=== PATIENT | female | born 1945 | race Caucasian/White ===

== ENCOUNTER 2017-02-26 12:55 | Emergency (ER) | payer MEDICARE, OTHER ==
[~2017-02-26] VITALS: Ht 177.8 cm; Wt 70.3 kg
[~2017-02-26 12:55] MED LIST: ALBU2.5V5 NEB; DONE10TA7 PO; HYDR12.53 PO; LEVO500T38 PO; MEMA10TA20 PO; PARO40TA3 PO; PRED-220 PO; QUET50TA PO; SIMV40TA3 PO
[2017-02-26 13:06] VITALS: BP 117/75
[2017-02-26] MEDS ORDERED: IBUPROFEN 400 MG TABLET. PO ONE (13:15)
--- NOTE | 2017-02-26 13:19 | PHYS DOC ---
Past Medical History Past Medical History: COPD, High Cholesterol, Hypertension, UTI, Other Additional Past Medical Histor: ALZHEIMERS, Past Surgical History: No Surgical History Alcohol Use: None Drug Use: None Adult General Chief Complaint Chief Complaint: BREAST PROBLEM HPI HPI Patient is a 71 year old female presents emergency department stating that 2 days ago she found a lump under her left breast. She states that she does not do monthly breast exams. She does states that she does do her normal may milligrams although it has not been on for quite some time. Patient denies any drainage or discharge coming from the area. She states that is very hard and tender. She denies fever, chills or any nausea vomiting. Patient does state they have breast cancer that runs in the family although was from an aunt. Review of Systems Review of Systems Constitutional: Denies fever or chills [] Eyes: Denies change in visual acuity, redness, or eye pain [] HENT: Denies nasal congestion or sore throat [] Respiratory: Denies cough or shortness of breath [] Cardiovascular: No additional information not addressed in HPI [] GI: Denies abdominal pain, nausea, vomiting, bloody stools or diarrhea [] : Denies dysuria or hematuria [] Musculoskeletal: Denies back pain or joint pain [] Integument: Denies rash or skin lesions. C/o lump under the left breast Neurologic: Denies headache, focal weakness or sensory changes [] Endocrine: Denies polyuria or polydipsia [] Current Medications Current Medications Current Medications Medications (Trade) Dose Ordered Sig/Janet Start Time Stop Time Status Last Admin Dose Admin Ibuprofen (Motrin) 400 mg 1X ONCE 02/26/17 13:15 02/26/17 13:17 DC 02/26/17 13:41 400 MG Allergies Allergies Allergies Coded Allergies Type Severity Reaction Last Updated Verified Penicillins Allergy Unknown Itching 02/26/17 Yes morphine Allergy Unknown 02/26/17 Yes Physical Exam Physical Exam Constitutional: Well developed, well nourished, no acute distress, non-toxic appearance. [] HENT: Normocephalic, atraumatic, bilateral external ears normal, oropharynx moist, no oral exudates, nose normal. [] Eyes: PERRLA, EOMI, conjunctiva normal, no discharge. [] Neck: Normal range of motion, no tenderness, supple, no stridor. [] Cardiovascular:Heart rate regular rhythm, no murmur [] Lungs & Thorax: Bilateral breath sounds clear to auscultation [] Skin: Warm, dry, no erythema, no rash. Grape-sized area lump noticed under the left breast. Area appears to be movable, hard and tender Back: No tenderness Extremities: No tenderness, no cyanosis, no clubbing, ROM intact, no edema. [] Neurologic: Alert and oriented X 3, normal motor function, normal sensory function, no focal deficits noted. [] Psychologic: Affect normal, judgement normal, mood normal. [] Current Patient Data Vital Signs Vital Signs Date Time Temp Pulse Resp B/P (MAP) Pulse Ox O2 Delivery O2 Flow Rate FiO2 02/26/17 13:06 98.3 79 18 96 Room Air 98.3 EKG EKG [] Radiology/Procedures Radiology/Procedures [][facility] [address] [place] [address] IMAGING REPORT Signed PATIENT: JASON VALDOVINOS ACCOUNT: [id number] : 1945 LOCATION: ER AGE: 71 SEX: F EXAM STATUS: REG ER ORD. PHYSICIAN: MARGARET DICKSON APRN REASON: lump under breast tenderness and hard PROCEDURE: BREAST LEFT Examination: Targeted ultrasound left breast History: History of painful lump under the left breast for one year Comparison: None available Findings: There is a 1 cm hypodense mass with the central echogenicity , identified at 5:30 position 5 cm from the nipple in the left breast with vascular flow within. Impression: 1 cm hypodense mass with central echogenicity identified at 5:30 position on the left breast 5 cm from the nipple. Differential includes mass or lymph node. BI-RADS Category 0. Needs additional imaging evaluation. Recommend follow-up diagnostic mammogram. DICTATED and SIGNED BY: BETTE CASTANEDA MD DATE: 02/26/17 0424 CC: MARGARET DICKSON APRN; NON,STAFF; LUCY FERGUSON MD ~ Course & Med Decision Making Course & Med Decision Making Pertinent Labs and Imaging studies reviewed. (See chart for details) patient with mass noted at 5:30 area per radiology. Mammogram was recommended. Mammogram was complete with mass noted and biopsy recommended. Patient was provided information. Patient will be discharged home in stable condition. Signs and symptoms to return to the emergency department have been provided. Family agrees with discharge instructions, treatment regimen and followup recommendations. [] Dragon Disclaimer Dragon Disclaimer This electronic medical record was generated, in whole or in part, using a voice recognition dictation system. Departure Departure Impression: Primary Impression: Left breast mass Disposition: HOME, SELF-CARE Condition: STABLE Referrals: LUCY FERGUSON MD (PCP) Patient Instructions: Breast Tenderness Additional Instructions: Activity as tolerated Tylenol or Ibuprofen for pain Followup with primary care provider for referral for a breast biopsy. MARGARET DICKSON RN ICU February 26, 2017 13:19
--- NOTE | 2017-02-26 13:43 | RAD ---
Examination: Targeted ultrasound left breast History: History of painful lump under the left breast for one year Comparison: None available Findings: There is a 1 cm hypodense mass with the central echogenicity , identified at 5:30 position 5 cm from the nipple in the left breast with vascular flow within. Impression: 1 cm hypodense mass with central echogenicity identified at 5:30 position on the left breast 5 cm from the nipple. Differential includes mass or lymph node. BI-RADS Category 0. Needs additional imaging evaluation. Recommend follow-up diagnostic mammogram.
--- NOTE | 2017-02-27 16:56 | RAD ---
DATE: 02/26/2017 EXAM: DIGITAL DIAGNOSTIC LT HISTORY: Left breast mass COMPARISON: Ultrasound same day exam This study was interpreted with the benefit of Computerized Aided Detection (CAD ). FINDINGS: Breast Density: SCATTERED The breast parenchyma shows scattered fibroglandular densities. Breast parenchyma level B. There is a irregular appearing mass identified in the 5:00 position of the left breast with irregular margins. IMPRESSION: Irregular appearing left breast mass at 5:00 position. BI-RADS CATEGORY: 4 SUSPICIOUS ABNORMALITY-BIOPSY SHOULD BE CONSIDERED RECOMMENDED FOLLOW-UP: Recommend ultrasound-guided biopsy. Ordering ER physician and patient was informed at time of dictation. PQRS compliance statement: Patient information was entered into a reminder system with a target due date immediate recall for the next mammogram. Mammography is a sensitive method for finding small breast cancers, but it does not detect them all and is not a substitute for careful clinical examination. A negative mammogram does not negate a clinically suspicious finding and should not result in delay in biopsying a clinically suspicious abnormality. "Our facility is accredited by the [employer] Mammography Program." KAMROND
== END 2017-02-26 16:15 | disposition home or self-care (01) ==
LOC: ER 12:55
DX: N63 Unspecified lump in breast (principal); J44.9 Chronic obstructive pulmonary disease, unspecified; E78.00 Pure hypercholesterolemia, unspecified; I10 Essential (primary) hypertension; G30.9 Alzheimer's disease, unspecified; F02.80 Dementia in other diseases classified elsewhere, unspecified severity, without behavioral disturbance, psychotic disturbance, mood disturbance, and anxiety; Z87.440 Personal history of urinary (tract) infections; Z88.5 Allergy status to narcotic agent; Z88.0 Allergy status to penicillin
CPT/HCPCS: 76641; 99284; G0206; 77065

== ENCOUNTER → 2017-03-19 | Day surgery (SDC) | payer OTHER ==
[~2017-03-19] MED LIST changes: +ALBUTEROL SULFATE 2.5 MG/3 ML NEBU. IH ONE; +ALBUTEROL SULFATE 2.5 MG/3 ML NEBU. ONE; +DOCU100C28 PO; +FLUT1DIS5 IH; +GLYCOPYRROLATE 1 MG/5 ML VIAL. ONE; +IV RINGERS,LACTATED 1000ML 1,000 ML IV SCH; -LEVO500T38 PO; +LEVO500T59 PO; +LIDOCAINE 1% 1 ML SYRINGE. ID PRN; +LISI1TAB3 PO; +MEPERIDINE PF 25 MG/ML VIAL. ONE; +MIDAZOLAM HCL/PF 2 MG/2 ML VIAL. IV PRN; +PROPOFOL 40 ML IV ONE; +fentaNYL PF VIAL 100 MCG/2 ML VIAL IV PRN
[2017-03-19 14:43] VITALS: BP 118/60
--- NOTE | 2017-03-19 21:20 | RESP ---
DATE OF SERVICE: 03/19/2017 ATTENDING PHYSICIAN: Nancy Weinstein M.D. PROCEDURE: Bronchoscopy, bronchoalveolar lavage. INDICATIONS: The patient presented with abnormal CT of the chest revealing left upper lobe mass, undergoing a diagnostic bronchoscopy. Risks, benefits, and alternatives reviewed with the patient and she consented. DESCRIPTION OF PROCEDURE: Timeout was performed prior to sedation. Vital signs and O2 saturation were maintained within normal limits throughout the procedure. The bronchoscope was passed through the right naris. The vocal cords were anesthetized with lidocaine. The bronchoscope was passed through the vocal cords into the proximal trachea, which was normal. The distal trachea was likewise normal. The right and left segments and subsegments were well visualized. There was no endobronchial lesion. The scope was wedged into the left upper lobe subsegment and bronchoalveolar lavage was performed. The ____ was clear. The patient tolerated procedure well with no immediate complications. FINDINGS: 1. Normal vocal cords. 2. No endobronchial lesion. PLAN: We will await the BAL results. The patient is to follow up in the office. GALILEO SMITH MD DR: CAM/hugh JOB#: [id number] / [id number] mis aLra Dr.
--- NOTE | 2017-03-20 10:37 | PATHOLOGY ---
CYTOPATHOLOGY REPORT CLINICAL HISTORY: Lung mass. SPECIMEN(S) RECEIVED: A.Bronchoalveolar lavage, JONAS FINAL DIAGNOSIS: Bronchoalveolar lavage, left upper lobe: - Few mildly atypical cells present amongst many reactive bronchial epithelial cells and alveolar macrophages not diagnostic. COMMENT: Suggest clinical correlation. PATHOLOGIST: Asa Medeiros M.D. REPORT ELECTRONICALLY SIGNED BY: Asa Medeiros M.D. DATE/TIME: 03/20/2017 10:37 GROSS PATHOLOGY: A. Bronchoalveolar lavage, JONAS: The specimen is submitted unfixed, labeled "Sonia Valdovinos". Received by the Cytology Department is 10 mL of cloudy red fluid. One ThinPrep slide was prepared. (clt 03.19.2017) SIGNALER(S): ASA Rivers(ASCP) INITIAL CPT CODE(S): A; 77860 Professional services performed [place] [facility] [place] [address] Technical services performed by [facility] at [address] [place] [address], [address], [place] [address]. PATIENT: SONIA VALDOVINOS /AGE: 10 1945 (Age: 71) SEX: F PATIENT #: [id number] ALT CASE #: SPECIMEN COLLECTION DATE: 03/19/2017 SPECIMEN RECEIVED DATE: 03/19/[address] [facility] [address] [place] [address], [address] [place] [address] PHONE: [phone] DIRECTOR: Juarez Lozano M.D. * * * END OF REPORT * * *
== END | disposition home or self-care (01) ==
LOC: SURG 12:11
PROVIDERS: ATTEND Internal Medicine Pulmonary Disease
DX: R91.8 Other nonspecific abnormal finding of lung field (principal); E78.00 Pure hypercholesterolemia, unspecified; I10 Essential (primary) hypertension; J44.9 Chronic obstructive pulmonary disease, unspecified; F32.9 Major depressive disorder, single episode, unspecified; Z90.710 Acquired absence of both cervix and uterus; M19.90 Unspecified osteoarthritis, unspecified site; Z88.6 Allergy status to analgesic agent; Z88.0 Allergy status to penicillin
CPT/HCPCS: 31624; 87070; 87102; 87116; 87205; 88112; 94640; J2704; 31622; J2175; J3490

== ENCOUNTER → 2017-03-27 | Outpatient (CLI) | payer OTHER ==
[2017-03-27] VITALS (13 sets, daily range): BP systolic 104–127; BP diastolic 45–77
[~2017-03-27] VITALS: Ht 177.8 cm; Wt 62.6 kg
[~2017-03-27] MED LIST changes: -ALBUTEROL SULFATE 2.5 MG/3 ML NEBU. IH ONE; -ALBUTEROL SULFATE 2.5 MG/3 ML NEBU. ONE; -GLYCOPYRROLATE 1 MG/5 ML VIAL. ONE; -IV RINGERS,LACTATED 1000ML 1,000 ML IV SCH; +KETOROLAC TROMETHAMINE 30 MG/ML INJ. IV PRN; +LIDOCAINE 1% / SOD BICARB 8.4% 20 ML VIAL. IJ ONE; -LIDOCAINE 1% 1 ML SYRINGE. ID PRN; +LIDOCAINE 2% 20 ML VIAL. IJ ONE; -MEPERIDINE PF 25 MG/ML VIAL. ONE; +MIDAZOLAM HCL/PF 2 MG/2 ML VIAL. IV ONE; -MIDAZOLAM HCL/PF 2 MG/2 ML VIAL. IV PRN; +MIDAZOLAM HCL/PF 2 MG/2 ML VIAL. ONE; -PROPOFOL 40 ML IV ONE; +fentaNYL PF VIAL 100 MCG/2 ML VIAL IV ONE; -fentaNYL PF VIAL 100 MCG/2 ML VIAL IV PRN; +fentaNYL PF VIAL 100 MCG/2 ML VIAL ONE
[2017-03-27 07:24] LABS: BASO # 0.1 x10^3/uL (0.0-0.2); BASO % 1 % (0-3); EOS % 7 % (0-3); HEMOGLOBIN 11.7 g/dL (12.0-15.5); LYMPH # 3.3 x10^3/uL (1.0-4.8); LYMPH % 26 % (24-48); MEAN CORPUSCULAR HEMOGLOBIN 27 pg (25-35); MEAN CORPUSCULAR HGB CONC 32 g/dL (31-37); MEAN CORPUSCULAR VOLUME 83 fL (79-100); MONO % 6 % (0-9); NEUT % 60 % (31-73); PLATELET COUNT 516 x10^3/uL (140-400); RED BLOOD COUNT 4.34 x10^6/uL (3.50-5.40); RED CELL DISTRIBUTION WIDTH 15.8 % (11.5-14.5); WHITE BLOOD COUNT 12.8 x10^3/uL (4.0-11.0)
[2017-03-27 07:36] LABS: PROTHROMBIN TIME PATIENT 12.9 SEC (11.7-14.0)
--- NOTE | 2017-03-27 09:14 | PDOC ---
MODERATE SEDATION ASSESSMENT RISKS/ALTERNATIVES Risks/Alternatives Risks and alternatives of this type of sedation and procedure discussed with: RISK/ALTERNATIVES: Patient H & P ON CHART H & P H & P on chart and reviewed for co-morbid conditions and appropriate labs. H&P ON CHART: Yes STATUS PREG STATUS ASSESSED: N/A MEDS/ALLERGIES REVIEWED Meds/Allergies Reviewed Medications and Allergies including time and route of recently administered narcotics and sedatives. MEDS/ALLERGIES REVIEWED: Yes ASA RATING ASA RATING: III AIRWAY ASSESSMENT Airway Assessment Airway patency, oral function limitations, presence of caps, crowns, dentures, partials, and ability to extend neck assessed. AIRWAY ASSESSMENT: Yes MALLAMPATI SCORE MALLAMPATI SCORE: II PRE-SEDATION ASSESSMENT PRE-SEDATION ASSESSMENT: Yes NHUNG MURDOCK MD Mar 27, 2017 09:14
--- NOTE | 2017-03-27 09:22 | PDOC1 ---
History and Physical Date of Procedure Date of Admission 03/27/[address] guided left lung mass bx Indication Indication 71 YO female smoker with COPD and with 2.2 cm, noncalcific, spiculated left upper lobe lung mass. Recent Dx of breast cancer. CT guided bx requested for tissue dx. Past Medical History Past Medical History See Nursing Pre Procedure PMH Past Surgical History Past Surgical History See Nursing Pre Procedure PSH Current Medications Current Medications Current Medications Lidocaine/Sodium Bicarbonate (Buffered Lidocaine 1%) 20 ml STK-MED ONCE IJ ; Start 03/27/17 at 07:55; Stop 03/27/17 at 07:56; Status DC Fentanyl Citrate (Fentanyl 2ml Vial) 100 mcg STK-MED ONCE .ROUTE ; Start at 08:12; Stop 03/27/17 at 08:13; Status DC Midazolam HCl (Versed) 2 mg STK-MED ONCE .ROUTE ; Start 03/27/17 at 08:12; Stop 03/27/17 at 08:13; Status DC Midazolam HCl (Versed) 2 mg 1X ONCE IV Last administered on 03/27/17 08:45; Start 03/27/17 at 08:45; Stop 03/27/17 at 08:46; Status DC Fentanyl Citrate (Fentanyl 2ml Vial) 100 mcg 1X ONCE IV Last administered on 08:45; Start 03/27/17 at 08:45; Stop 03/27/17 at 08:46; Status DC Lidocaine HCl 20 ml 1X ONCE IJ Last administered on 03/27/17 08:45; Start at 08:45; Stop 03/27/17 at 08:46; Status DC Active Scripts Active Advair 500-50 Diskus (Fluticasone/Salmeterol) 1 Each Disk.w.dev 1 Puff IH BID Albuterol Sulfate Neb Soln (Albuterol Sulfate) 2.5 Mg/3 Ml Vial.neb 2.5 Mg NEB PRN Q2HR PRN 30 Days Reported Docusate Sodium 100 Mg Capsule 1 Cap PO QHS Advair 500-50 Diskus (Fluticasone/Salmeterol) 1 Each Disk.w.dev 1 Puff IH BID Quetiapine Fumarate 50 Mg Tablet 150 Mg PO QHS Paroxetine Hcl 40 Mg Tablet 40 Mg PO DAILY Memantine HCl 10 Mg Tablet 10 Mg PO BID Donepezil Hcl 10 Mg Tablet 10 Mg PO QHS Simvastatin 40 Mg Tablet 40 Mg PO QHS Allergies Allergies: Coded Allergies: Penicillins (Verified Allergy, Intermediate, Itching, 03/19/17) morphine (Verified Adverse Reaction, Intermediate, "GETS CRAZY", 03/19/17) Physical Exam Vital Signs Vital Signs Date Time Temp Pulse Resp B/P (MAP) Pulse Ox O2 Delivery O2 Flow Rate FiO2 03/27/17 08:45 16 96 Nasal Cannula 2.0 03/27/17 08:44 79 03/27/17 07:30 98.2 104/45 (64) 98.2 Lungs: Other (Diminished breath sounds with scattered wheezes) Heart: Regular rate Psych/Mental Status: Mental status NL Diagnostic Data/Imaging Images PMC CTA chest from 03/14/17 reviewed Assessment Assessment Spiculated, 2.2 cm, noncalcific left upper lobe lung mass. Recently diagnosed breast cancer. Lung mass thought more likely to represent 2nd primary malignancy rather than met breast cancer. Problems: Plan Plan CT guided left lung bx, with possible chest tube insertion for post bx Ptx , in this medical terminologist smoker with significant COPD. NHUNG MURDOCK MD Mar 27, 2017 09:22
--- NOTE | 2017-03-27 09:33 | PDOC ---
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 Post-Procedure Diagnosis Post-Procedure Diagnosis Same Procedure Performed Procedure Performed CT guided left lung mass bx Type of Anesthesia Type of Anesthesia Local + Mod sedation Estimated Blood Loss EBL: Trace Specimens Specimans 2 18G core bx to path in formalin Condition of Patient Condition of Patient Hemodynamically stable. Completion CT images revealed tiny asymptomatic immediate post bx Ptx, stable over 15 minutes. Disposition Disposition From IR/CT to CVOBS. 90 minute post bx insp/exp CXR requested to confirm or exclude Ptx progression. F/u with Dr Lara. Full report to follow. NHUNG MURDOCK MD Mar 27, 2017 09:33
--- NOTE | 2017-03-27 10:49 | RAD ---
Portable chest, inspiration and expiration views, 03/27/2017: History: Post lung biopsy evaluation Comparison is made to a study from 03/14/2017. There has been interval percutaneous biopsy of a left apical mass. The mass itself is not well defined on these views due to overlying rib and clavicular shadows. There is a small left apical pneumothorax estimated at 5-10% in volume. There is a calcified granuloma in the left lung. There are scattered parenchymal scars. No pleural fluid is seen. The heart size is normal. IMPRESSION: Small left apical pneumothorax status post left lung biopsy.
--- NOTE | 2017-03-28 06:43 | RAD ---
CT-guided left lung biopsy Indication: 71-year-old female recently diagnosed with breast cancer. She is a heavy smoker, with COPD, and with a spiculated, noncalcified, 2 cm mass within left lung apex. This lung mass is thought more likely to represent a second primary cancer than metastatic breast cancer. CT-guided biopsy has been requested for tissue diagnosis. Anesthesia: 31 minutes moderate sedation was provided utilizing a total of 0.5 mg Versed and 25 mcg fentanyl, IV. The patient was appropriately monitored by a qualified independent observer throughout the time of moderate sedation. Consent: The procedure was explained in its entirety to the patient and/or the patient's designated retention representative by a member of the treatment team. This included a discussion of risks and benefits and acceptable alternatives to the procedure, as well as expected consequences of no treatment at all. Discussion of risks included, but was not limited to, those that are most frequent and those that are rare, but possibly severe or life-threatening, as well as the possibility of unforeseen complications. Given this patient's COPD, the risk of postbiopsy pneumothorax was emphasized. Procedure: Informed consent was obtained from the patient. She was placed prone on the CT scanner. Preliminary noncontrast CT images confirmed the previously described spiculated, noncalcified, 2 cm mass within left lung apex, with surrounding emphysematous changes. A left posterior skin site suitable for CT-guided biopsy was selected and marked. That area was prepped and draped in the usual sterile fashion. Moderate sedation was provided with IV Versed and fentanyl. Using aseptic technique, local anesthesia, and CT guidance, a 17-gauge guide needle was successfully advanced into posterior aspect of the spiculated lung mass. 2 18-gauge core biopsy samples were then obtained. Biopsy material was submitted in formalin to pathology. The biopsy needle was removed and a sterile dressing was applied. Completion CT images revealed a small, asymptomatic postbiopsy pneumothorax, which remained stable on [address] images. A 90 minute postbiopsy inspiration/expiration chest x-ray will be obtained during patient recovery in CV observation to confirm or exclude pneumothorax progression. Impression: Successful CT-guided left lung mass biopsy, as described. A very small postbiopsy pneumothorax was identified on completion CT images. A 90 minute postbiopsy aspiration/expiration chest x-ray will be obtained during patient recovery in CV observation, to confirm or exclude pneumothorax progression. PQRS Compliance Statement: One or more of the following individualized dose reduction techniques was utilized for this procedure: 1. Automated exposure control. 2. Adjustment of MA and/or KV according to patient size. 3. Iterative reconstruction technique.
--- NOTE | 2017-03-29 16:33 | PATHOLOGY ---
PATHOLOGY REPORT * * * * * * * * FINAL DIAGNOSIS: Lung tissue, left lung mass CT-guided biopsy: - ADENOCARCINOMA, MODERATELY TO FOCALLY POORLY DIFFERENTIATED. SEE COMMENT. COMMENT: Sections of the left lung mass CT-guided biopsy show extensive replacement of lung parenchyma by a malignant epithelial neoplasm. The neoplasm is composed of irregular glands which are associated with a reactive fibrotic and elastotic stroma. Some of the malignant glands show dirty intraluminal necrosis. The malignant cells have ample amounts of pale eosinophilic cytoplasm. The malignant cells possess enlarged, rounded to ovoid, moderately to focally markedly pleomorphic nuclei containing prominent nucleoli. There are mitotic figures present. 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 The case was also examined by Dr. Godwin Blum, who concurs with the diagnosis. (JPM:mgr/mary; d/t: 03/28/17) Special Stains Performed: Immunoperoxidase stains for CK7, CK20, CDX-2, Mammaglobin, BCA-225, TTF-1, Napsin. REPORT ELECTRONICALLY SIGNED BY: Osmar Carbajal M.D. DATE/TIME: 03/29/2017 16:32 * * * * * * * * GROSS PATHOLOGY: Received in formalin labeled "Sonia Valdovinos, left lung biopsy," are 2 distinct needle cores of gibbons soft tissue ranging from 0.8 and 1.0 cm in length, which are submitted entirely in cassette A1. (JPM; 03/27/17) INITIAL CPT CODE(S): A; 31975, 58104, 73233, 46215, 27429, 19066, 33101, 88628 Professional services performed by [email or web address] at [facility] [address] [place] [id number] Technical services performed by [facility] at [address] [place] [address], [address], [place] [address]. SPECIMEN(S) RECEIVED: A.Left lung mass CLINICAL HISTORY: Left lung mass, ? bronch ca, 2cm mass JONAS, also breast cancer diagnosed 03/15/17, smoker with COPD PATIENT: SONIA VALDOVINOS /AGE: 10 1945 (Age: 71) PATIENT #: [id number] ALT CASE #: SPECIMEN COLLECTION DATE: 03/27/2017 SPECIMEN RECEIVED DATE: 03/27/2017 [facility] - [address] [place] [address] - PHONE: [phone] * * * END OF REPORT * * *
== END | disposition home or self-care (01) ==
LOC: INTRAD 06:55
PROVIDERS: ATTEND Internal Medicine Critical Care Medicine
DX: C34.92 Malignant neoplasm of unspecified part of left bronchus or lung (principal); J44.9 Chronic obstructive pulmonary disease, unspecified; F17.200 Nicotine dependence, unspecified, uncomplicated; I10 Essential (primary) hypertension; E78.00 Pure hypercholesterolemia, unspecified; M19.90 Unspecified osteoarthritis, unspecified site; F32.9 Major depressive disorder, single episode, unspecified; Z90.710 Acquired absence of both cervix and uterus; Z72.0 Tobacco use; Z86.69 Personal history of other diseases of the nervous system and sense organs; Z79.01 Long term (current) use of anticoagulants; Z88.6 Allergy status to analgesic agent; Z88.0 Allergy status to penicillin
CPT/HCPCS: 32405; 36415; 71035; 77012; 85027; 85610; 99152; 99153; J2250; J3010

== ENCOUNTER → 2017-03-29 | Outpatient (CLI) | payer OTHER ==
[2017-03-27 11:00] VITALS: BP 120/65
[~2017-03-29] MED LIST changes: -KETOROLAC TROMETHAMINE 30 MG/ML INJ. IV PRN; -LIDOCAINE 1% / SOD BICARB 8.4% 20 ML VIAL. IJ ONE; -LIDOCAINE 2% 20 ML VIAL. IJ ONE; -MIDAZOLAM HCL/PF 2 MG/2 ML VIAL. IV ONE; -MIDAZOLAM HCL/PF 2 MG/2 ML VIAL. ONE; -fentaNYL PF VIAL 100 MCG/2 ML VIAL IV ONE; -fentaNYL PF VIAL 100 MCG/2 ML VIAL ONE
--- NOTE | 2017-03-29 15:11 | RAD ---
Chest, 2 views, 03/29/2017: History: Lung mass, pneumothorax post lung biopsy Comparison is made to a study from 03/27/2017. The heart size is normal. The patient's left apical lung mass is partially obscured by overlying bones. No definite residual pneumothorax is delineated. There are granulomatous calcifications in the left chest. No new pulmonary abnormality is seen. There is no evidence of pleural fluid. Multiple old healed rib fractures are present on the left. IMPRESSION: 1. Left apical mass. 2. No significant residual left pneumothorax.
== END | disposition home or self-care (01) ==
LOC: RAD 10:57
PROVIDERS: ATTEND Internal Medicine Critical Care Medicine
DX: J93.9 Pneumothorax, unspecified (principal); R91.8 Other nonspecific abnormal finding of lung field
CPT/HCPCS: 71020

== ENCOUNTER → 2017-04-01 | Outpatient (CLI) | payer OTHER ==
[2017-03-27 11:00] VITALS: BP 120/65
--- NOTE | 2017-04-08 21:56 | RESP ---
DATE OF SERVICE: The patient underwent full pulmonary function testing dated 04/01/2017. FEV1 to FVC ratio was 64%, FEV1 was 1.72 liters at 63% of predicted, FVC was 2.69 liters at 75% of predicted. There was a 16% bronchodilator response. Residual volume was slightly decreased. Total lung capacity was not calculated. Vital capacity was decreased to 75% of predicted. IMPRESSION: 1. Moderate to severe air flow limitation. 2. 16% bronchodilator response. 3. Slight decrease in diffusion capacity. GALILEO SMITH MD DR: CAM/hugh JOB#: [id number] / [id number] LUCY Long MD, AMAN MD
== END | disposition home or self-care (01) ==
LOC: PF 08:50
PROVIDERS: ATTEND Internal Medicine Critical Care Medicine
DX: R06.02 Shortness of breath (principal)
CPT/HCPCS: 94060; 94729

== ENCOUNTER → 2017-04-04 | Outpatient (CLI) | payer MEDICARE, OTHER ==
[2017-03-27 11:00] VITALS: BP 120/65
--- NOTE | 2017-04-04 16:21 | RAD ---
FDG tumor localization scan, PET/CT, 04/04/2017: History: Lung cancer Following IV injection of 16.6 mCi of 18 F-FDG, imaging was performed from the skull base to the proximal thighs. The noncontrast CT component was performed for attenuation correction and anatomic localization purposes rather than for primary diagnosis. The patient's blood glucose level at the time of injection was 86 MG/DL. There is a 2.3 cm spiculated left apical mass as noted on previous studies. This mass is hypermetabolic. It demonstrates a maximum SUV of 7.9 compatible with malignancy. There is a focus of increased activity in the lateral AP window region. It demonstrates a maximum SUV of 5.9. The appearance is compatible with adenopathy on a metastatic basis. A small 6 mm nodule seen anteriorly in the right midlung on the previous CT study is again identified on the today's CT component. It does not demonstrate significant FDG uptake. This favors a benign etiology, however, the small size of this nodule could also produce a false negative result. There are emphysematous changes in the lungs. There are scattered parenchymal scars. A calcified granuloma is present in the left lower lobe. Physiologic activity is seen in the neck. No abnormal neck uptake is seen. An irregular 15 mm nodule is again identified inferolaterally in the left breast. It demonstrates abnormal FDG uptake with a maximum SUV of 8.4. A primary breast malignancy is suspected. Normal GI tract and urinary tract activity is present in the abdomen and pelvis. No hypermetabolic intra-abdominal lesion is seen. There is a 2.6 cm lytic lesion within the left sacral wing, involving the sacroiliac joint. It is hypermetabolic demonstrating a maximum SUV of 11.4. A bone metastasis is suspected. An arthritic etiology is much less likely. IMPRESSION: 1. Hypermetabolic left apical mass compatible with a primary lung malignancy, with metastatic adenopathy at the AP window level. 2. Hypermetabolic left breast mass suggesting a primary breast malignancy. 3. FDG- PET negative tiny right lung nodule, as described above. 4. Left sacral hypermetabolic lesion, likely metastatic.
== END | disposition home or self-care (01) ==
LOC: PETSC 13:01
PROVIDERS: ATTEND Internal Medicine Pulmonary Disease
DX: C34.90 Malignant neoplasm of unspecified part of unspecified bronchus or lung (principal); C77.9 Secondary and unspecified malignant neoplasm of lymph node, unspecified
CPT/HCPCS: 78815; A9552